=== PATIENT | female | born 1950 | race African-American/Black ===

== ENCOUNTER 2017-05-06 19:13 | Inpatient (IN) | payer OTHER ==
--- NOTE | ~2017-05-06 | EKG ---
PATIENT: FRANK RITCHIE UNIT #: [id number] Ventricular Rate: 82 BPM Atrial Rate: 82 BPM P-R Interval: 124 ms QRS Duration: 108 ms Q-T Interval: 380 ms QTC Calculation(Bezet): 443 ms P Anatone: 65 degrees Calculated R Anatone: -39 degrees Calculated T Anatone: 66 degrees Diagnosis Line: Normal sinus rhythm Diagnosis Line: Left axis deviation Diagnosis Line: Low voltage QRS Diagnosis Line: Right bundle branch block Diagnosis Line: Cannot rule out Inferior infarct , age Diagnosis Line: undetermined Diagnosis Line: Abnormal ECG Diagnosis Line: No previous ECGs available Diagnosis Line: Confirmed by SAEED COBB MD ([id number]) on Diagnosis Line: 05/07/2017 8:22:58 AM INTERPRETING MD: REZA ARELLANO
--- NOTE | ~2017-05-06 | CR63 ---
[facility] A Service of [facility] & [facility] RADIOLOGY TEXT RESULTS PATIENT: FRANK RITCHIE LOCATION: CEDOF : 48 UNIT #: [id number] AGE: [address]: Boni Tidwell MD SEX: F ORDER DR: [id number] [facility] [address] [facility] [place], [place] [address] [id number] I MR#: [id number] #: [id number] NAME: FRANK RITCHIE : 1950 SEX: F STUDY DATE/TIME: 05/07/2017 8:44 UNIT: CEDOF ROOM: 39219 STUDY DESCRIPTION: CR Chest 2 View Attending Physician: Boni Tidwell M.D. Ordering Physician: Lou Pope M.D. Primary Care Physician: Primary Care Physician No MEDICAL IMAGING REPORT This report is preliminary unless electronic signature is present EXAM Chest, 05/07/2017 HISTORY 66-year-old woman followup from 05/06/2017 chest. Patient short of air with generalized weakness. Symptoms stated 1 day only. Possible interstitial infiltrate on comparison exam. COMPARISON Portable chest, 05/06/2017 FINDINGS Two-view chest today demonstrates cardiac enlargement with vascular congestion and interstitial prominence. Probable bilateral pleural effusions. There is now a large hiatal hernia present that was not apparent on the comparison study. IMPRESSION Findings most consistent with congestive heart failure. Large hiatal hernia now present, not apparent on the comparison study. Correlate clinically. Dictated by... Amador Willingham M.D. THIS IS AN ELECTRONICALLY VERIFIED REPORT Amador Willingham M.D. at 05/07/2017 1:56 PM JJ/lucy TD: 05/07/2017 13:37 JOB #: [id number] MEDICAL IMAGING REPORT [facility] A Service of [facility] & [facility] RADIOLOGY TEXT RESULTS PATIENT: FRANK RITCHIE LOCATION: CEDOF : 48 UNIT #: [id number] AGE: [address]: Boni Tidwell MD SEX: F ORDER DR: Page 1 of 1 COPY
--- NOTE | ~2017-05-06 | DS ---
Unit #: [id number] #: [id number] Patient: FRANK RITCHIE [id number] [facility]. [place], [place] [address] [id number] I MR#: [id number] NAME: FRANK RITCHIE ROOM: 307 Age: 66 Sex: F Admission Date: 05/06/2017 : 1950 Discharge Date: 05/08/2017 Attending Physician: Boni Tidwell M.D. Primary Care Physician: No Primary Care Physician DISCHARGE SUMMARY DISCHARGE DIAGNOSES 1. Syncope. 2. Acute kidney injury, prerenal. 3. Pulmonary hypertension. 4. Mixed B12 and iron deficiency anemia. 5. Seizure disorder. 6. Hypovolemic hypotension. HISTORY OF PRESENT ILLNESS/HOSPITAL COURSE The patient is a 66-year-old female brought to [facility] after she was noted to pass out at home. She was with family, outside and celebrating on the 06 of May when she was noted to pass out. The patient does have a seizure disorder and did not have any of her typical seizure-like activity. She did, however, have some loss of urine continence. The patient was noted to have awakened after a very short time and then completely alert after the event, which again, is very different from her normal seizure activity. The patient was noted to have systolic blood pressure in the 70s and 80s but rebounded to normal with a 2-liter bolus. In addition, she was noted to have a creatinine of 1.5. The patient was admitted to a telemetry floor and has had no events on the monitor. She had a two-D echo, which was essentially normal. She did have some elevated right ventricular systolic pressure at 39 mmHg. At this time the patient's creatinine is half of what it was at admission, down to 0.8 from 1.5. The patient has had no further episodes of syncope and feels well. She was briefly on antibiotics for a possible pneumonia given the chest x-ray that was read as "airspace disease of the left base." The patient's procalcitonin levels are negative, making bacterial pneumonia unlikely. Regarding her pulmonary hypertension, I have discussed with the patient the need to see her primary care provider, whose name she cannot recall, and the possible need to pursue an outpatient sleep study. Given no further episodes of syncope and resolution of her acute kidney injury, the patient is being discharged home at this time with her syncope felt secondary to volume depletion. DISCHARGE MEDICATIONS 1. Lisinopril/HCTZ 10/12 mg 1 p.o. daily. Unit #: [id number] #: [id number] Patient: FRANK RITCHIE 2. Keppra 500 mg p.o. b.i.d. 3. Lipitor 20 mg p.o. daily. 4. FeroSul 325 mg p.o. daily. 5. Cyanocobalamin 1,000 mcg p.o. daily. FOLLOWUP As mentioned above, the patient should follow up with her primary care provider at her next regularly scheduled appointment. Dictated by... Boni Tidwell M.D. KALLIE/jessica TD: 05/08/2017 12:40 JOB #: [id number] DISCHARGE SUMMARY Page 1 of 1 X Boni Tidwell MD X DISCHARGE SUMMARY
--- NOTE | ~2017-05-06 | HP ---
Unit #: [id number] #: [id number] Patient: FRANK RITCHIE [id number] [place], [place] [address] [id number] I MR#: [id number] NAME: FRANK RITCHIE ROOM: 27898 Age: 66 Sex: F Admission Date: 05/06/2017 : 1950 Attending Physician: Lou Pope M.D. Primary Care Physician: No Primary Care Physician HISTORY AND PHYSICAL CHIEF COMPLAINT Syncope versus seizure, hypotension, and normocytic anemia. HISTORY This pleasant 66-year-old female with hypertension and seizure disorder, is admitted after an episode of loss of consciousness. The patient went to her nieces alliance party, was in the sun for sometime today with little p.o. intake. Did drink some alcohol. She was witnessed to have an episode where she had some shaky movements and loss of consciousness, but denies her typical symptoms of seizures. States that she was not confused afterwards, nor did she bite her tongue, and no headache. She did, however, lose continence of her urine. She was brought to this emergency department tonight with an initial blood pressure of 90/48, blood pressure was as low as systolic of 70s and 80s. She was bolused with 2 L of IV saline with improvement of her blood pressure 107/65. In the course of her workup, a chest x-ray shows a possible left lower lobe infiltrate; however, the patient denies symptoms of pneumonia. Also she is anemic with a hematocrit of 24.6 and normal MCV. Heme negative from below. Denies previous history of anemia, melena or hematochezia. Labs are also notable for an elevated lactic acid and hypokalemia. In addition to the IV fluids, the patient was given oral potassium, Rocephin and Zithromax pending further workup. She denies complaints at present. She does have a history of hypertension, normally takes Zestoretic. PAST MEDICAL HISTORY 1. Hypertension. 2. Seizure disorder. ALLERGIES None. HOME MEDICATIONS Keppra 500 mg b.i.d.; Zestoretic 10/12.5 mg daily; and possibly a third medicine of unknown name. FAMILY HISTORY Negative for heart disease or anemia. SOCIAL HISTORY The patient lives with grandson. She stopped smoking three years ago, drinks alcohol only occasionally. Unit #: [id number] #: [id number] Patient: FRANK RITCHIE REVIEW OF SYSTEMS Notable for syncope versus seizure today, hypertension, seizure. All other systems were reviewed and are otherwise negative. PHYSICAL EXAMINATION GENERAL: Very pleasant, 66-year-old female who currently is in no acute distress. VITAL SIGNS: Temperature 98, pulse 86, respirations 18, blood pressure 90/48, although a systolic blood pressure was as low as 70s to 80s, current blood pressure is 103. O2 saturation 90% on room air. HEENT: Eyes - PERRLA. Extraocular muscles are intact. Pharynx somewhat poor dentition but benign. NECK: Supple without adenopathy or thyromegaly. CHEST: Clear. CARDIAC: Normal S1 and S2 without S3, S4 or murmur. ABDOMEN: Bowel sounds are present. No hepatosplenomegaly, tenderness, or masses. RECTAL: Per the ER physician, heme negative stool. EXTREMITIES: Minimal edema. Pedal pulses are diminished. NEUROLOGIC: Patient is awake, alert, and oriented. Cranial nerves are intact. Equal strength throughout. DIAGNOSTIC STUDIES ADMISSION LABS: Hematocrit is 24.6 with a hemoglobin of 7.7, no previous values for comparison. Normal white count, MCV, and platelet count. Normal differential. Cardiac markers negative. SMA 12 - creatinine is 1.5, potassium 2.9, lactic acid 4.3, alcohol level is less than 5. Urine tox screen is pending as is urinalysis. IMAGING STUDIES: Chest x-ray - prominence of interstitial markings and possible left lower lobe infiltrate. CARDIOLOGY STUDIES: EKG - normal sinus rhythm, rate 82, nonspecific ST wave abnormalities. Right bundle branch block without previous EKG for comparison. ASSESSMENT 1. Seizure versus syncope. 2. Normocytic anemia, patient is heme negative. 3. Rule out left lower lobe infiltrate, but patient denies symptoms of pneumonia. 4. Hypotension with history of hypertension, better after IV fluids. 5. Hypokalemia on Zestoretic. 6. Acute kidney injury. 7. Seizure disorder on Keppra. PLANS 1. Continue IV fluids, anemia workup and recheck CBC after hydration. 2. Replace potassium and check magnesium. 3. Hold Zestoretic and repeat labs in the morning. 4. Antibiotics pending PA and lateral chest x-ray in the morning. 5. Await urine tox screen. 6. Verify home medicines with [facility]. 7. SCDs for DVT prophylaxis. 8. Further workup and consultants depending on above. 9. Echocardiogram and repeat cardiac enzymes. Unit #: [id number] #: [id number] Patient: FARNK RITCHIE Dictated by Lou Pope M.D. AML/ts TD: 05/07/2017 05:43 JOB #: [id number] HISTORY AND PHYSICAL Page 1 of 1 X Lou Pope MD X HISTORY AND PHYSICAL
--- NOTE | ~2017-05-06 | CR72 ---
[facility] A Service of [facility] RADIOLOGY TEXT RESULTS PATIENT: FRANK RITCHIE LOCATION: CEDOF [address]-94 : [birth year] UNIT #: [id number] AGE: [address]: Boni Tidwell MD SEX: F ORDER DR: [id number] [facility] [address] [place], [place] [address] [id number] I MR#: [id number] #: [id number] NAME: FRANK RITCHIE : 1950 SEX: F STUDY DATE/TIME: 05/06/2017 19:51 UNIT: CEDOF ROOM: 14631 STUDY DESCRIPTION: CR Chest Single View Portable Attending Physician: Lou Pope M.D. Ordering Physician: Ranulfo Tovar M.D. Primary Care Physician: Primary Care Physician No MEDICAL IMAGING REPORT This report is preliminary unless electronic signature is present EXAM Chest x-ray single view portable HISTORY Short of air, possible seizure. Shortness of breath and weakness starting today. No injury. Patient does have high blood pressure. COMMENT Single frontal portable view of the chest timed 19:51 on 05/06/2017 is reviewed. No prior. There is mild cardiac silhouette enlargement and there is ectasia of the thoracic aorta wit vascular calcification at the knob. There is probably airspace disease at the left base with some obscuration of the left heart border and left hemidiaphragm. I would recommend correlation with a two-view study for better assessment. There may be a component of mild vascular congestion. The interstitial markings are prominent and this could be duct chronic interstitial lung disease or acute interstitial edema since I do not have any priors. No pleural effusion or pneumothorax is suspected. IMPRESSION 1. Mild cardiac silhouette enlargement. 2. Concern for some airspace disease of the left base. Would recommend correlation with a two-view study at this time. 3. Prominence of interstitial markings could be acute or chronic in the absence prior films. Please correlate for any history of chronic lung disease or concern for acute interstitial edema. 4. There is vascular calcification at the aortic knob with at least some ectasia of the descending thoracic aorta. STS. [facility] A Service of [facility] / [facility] RADIOLOGY TEXT RESULTS PATIENT: FRANK RITCHIE LOCATION: [facility] [address]-15 : [birth year] UNIT #: [id number] AGE: [address]: Boni Tidwell MD SEX: F ORDER DR: Dictated by... Corrina Ramirez M.D. THIS IS AN ELECTRONICALLY VERIFIED REPORT Corrina Ramirez M.D. at 05/07/2017 7:57 AM AGATA/barrett TD: 05/07/2017 05:23 JOB #: [id number] MEDICAL IMAGING REPORT Page 1 of 1 COPY
[2017-05-06 20:04] LABS: BASOPHIL% 0.6 % (0-2.5); EOSINOPHIL# 0.2 X10e3 (0-0.7); EOSINOPHIL% 3.2 % (0.0-7.0); HEMATOCRIT 24.6 % (35.0-45.0); HEMOGLOBIN 7.7 gm/dL (12.0-16.0); LYMPHOCYTE% 19.7 % (17.0-45.0); MEAN CELL VOLUME 83.9 FL (83-96); MEAN CORPUSCULAR HEMOGLOBIN 26.2 PG (28-34); MEAN CORPUSCULAR HGB CONC 31.3 g/dL (30-36); MONOCYTE# 0.5 X10e3 (0-1.0); MONOCYTE% 9.2 % (3.0-12.0); NEUTROPHIL# 3.6 X10e3 (1.5-7.1); NEUTROPHIL% 67.3 % (40-75); PLATELET COUNT 156 X10e3 (140-420); RED BLOOD COUNT 2.94 X10e (3.90-5.30); RED CELL DISTRIBUTION WIDTH 17.8 % (11.0-15.5); WHITE BLOOD COUNT 5.3 X10e3 (4.0-10.5)
[2017-05-06 20:05] LABS: DIFF IND YES
[2017-05-06 20:09] LABS: POC - CKMB <1.0 ng/mL (0.0-7.9); POC - TROPONIN <0.05 ng/mL (<=0.05)
[2017-05-06 20:22] LABS: ALBUMIN SERUM 3.6 g/dL (3.5-5.0); ALKALINE PHOSPHATASE 52 U/L (32-92); ALT (SGPT) 13 U/L (10-40); AST (SGOT) 22 U/L (10-42); BILIRUBIN, DIRECT 0.1 mg/dL (0.0-0.2); BILIRUBIN,INDIRECT 0.5 mg/dL (0.0-0.9); BILIRUBIN,TOTAL 0.6 mg/dL (0.2-2.0); BLOOD UREA NITROGEN 20 mg/dL (9-23); BUN/CREATININE RATIO 13.33; CALCIUM SERUM 8.5 mg/dL (8.4-10.2); CARBON DIOXIDE 23 mmol/L (22-31); CHLORIDE 104 mmol/L (100-111); CREATININE SERUM 1.5 mg/dL (0.6-1.4); GLOM FILT RATE Estimated 41.1 mL/min (>60); GLUCOSE FASTING 89 mg/dL (70-110); PROTEIN TOTAL SERUM 6.7 g/dL (6.0-8.3); SODIUM 137 mmol/L (135-145)
[2017-05-06 20:25] LABS: ALCOHOL BLOOD <5 mg/dL (0); POTASSIUM 2.9 mmol/L (3.5-5.1)
[2017-05-06 20:27] LABS: ANISOCYTOSIS MOD; PLATELET ESTIMATE NORMAL (NORMAL); POIKILOCYTOSIS SL
[2017-05-06] MEDS ORDERED: KEPPRA500 M2 PO (21:40)
[2017-05-06] MEDS ORDERED: ZESTORETIC 10-1 EAC1 PO (21:41)
[2017-05-06 22:16] LABS: URINE SOURCE CLEAN CATCH
[2017-05-06 22:20] LABS: URINE APPEARANCE CLEAR; URINE BILIRUBIN NEG (NEG); URINE BLOOD NEG (NEG); URINE COLOR YELLOW; URINE GLUCOSE NEG (NEG); URINE KETONE NEG (NEG); URINE LEUKOCYTE ESTERASE NEG (NEG); URINE NITRATE NEG (NEG); URINE PROTEIN NEG (NEG); URINE SPECIFIC GRAVITY 1.018 (1.003-1.035); URINE UROBILINOGEN 0.2 MG/DL (NEG)
[2017-05-06 22:25] LABS: CULTURE INDICATED? NO
[2017-05-06 22:29] LABS: AMPHETAMINE NEG (NEG); BARBITURATES NEG (NEG); BENZODIAZEPINES NEG (NEG); COCAINE NEG (NEG); MARIJUANA NEG (NEG); OPIATES NEG (NEG); TRICYCLIC ANTIDEPRESSANTS NEG (NEG); U METHADONE NEG (NEG)
[2017-05-07 00:38] LABS: MAGNESIUM 1.9 mg/dL (1.6-3.0)
[2017-05-07 00:57] LABS: %MB 0.7 % (0.0-4.0); MB 0.6 ng/ml
[2017-05-07 01:23] LABS: HEMATOCRIT 29.7 % (35.0-45.0); MEAN CELL VOLUME 81.2 FL (83-96); MEAN CORPUSCULAR HEMOGLOBIN 26.5 PG (28-34); MEAN CORPUSCULAR HGB CONC 32.7 g/dL (30-36); RED BLOOD COUNT 3.66 X10e (3.90-5.30); RED CELL DISTRIBUTION WIDTH 18.2 % (11.0-15.5); RETICULOCYTE 0.8 % (0.5-2.8)
[2017-05-07 01:26] LABS: HEMOGLOBIN 9.7 gm/dL (12.0-16.0); WHITE BLOOD COUNT 8.6 X10e3 (4.0-10.5)
[2017-05-07 08:32] LABS: HEMATOCRIT 33.1 % (35.0-45.0); HEMOGLOBIN 10.5 gm/dL (12.0-16.0); MEAN CELL VOLUME 83.7 FL (83-96); MEAN CORPUSCULAR HEMOGLOBIN 26.5 PG (28-34); MEAN CORPUSCULAR HGB CONC 31.7 g/dL (30-36); MEAN PLATELET VOLUME 9.4 FL (6.5-11.5); RED BLOOD COUNT 3.96 X10e (3.90-5.30); RED CELL DISTRIBUTION WIDTH 18.2 % (11.0-15.5); WHITE BLOOD COUNT 6.7 X10e3 (4.0-10.5)
[2017-05-07 09:01] LABS: CALCIUM SERUM 8.3 mg/dL (8.4-10.2); GLOM FILT RATE Estimated 67.1 mL/min (>60)
[2017-05-07 09:03] LABS: POTASSIUM 4.4 mmol/L (3.5-5.1)
[2017-05-07 09:22] LABS: %MB 1.2 % (0.0-4.0); MB 1.1 ng/ml
[2017-05-07] MEDS ORDERED: FEROSUL325 MG PO (09:49)
[2017-05-07] MEDS ORDERED: LIPITOR20 MG PO (09:49)
[2017-05-08 05:59] LABS: HEMATOCRIT 28.6 % (35.0-45.0); HEMOGLOBIN 9.2 gm/dL (12.0-16.0); MEAN CELL VOLUME 81.9 FL (83-96); MEAN CORPUSCULAR HEMOGLOBIN 26.4 PG (28-34); MEAN CORPUSCULAR HGB CONC 32.2 g/dL (30-36); MEAN PLATELET VOLUME 9.3 FL (6.5-11.5); RED BLOOD COUNT 3.49 X10e (3.90-5.30); RED CELL DISTRIBUTION WIDTH 18.7 % (11.0-15.5)
[2017-05-08 07:02] LABS: BUN/CREATININE RATIO 13.75; CALCIUM SERUM 8.3 mg/dL (8.4-10.2); CREATININE SERUM 0.8 mg/dL (0.6-1.4); GLOM FILT RATE Estimated 87.9 mL/min (>60); POTASSIUM 3.8 mmol/L (3.5-5.1)
[2017-05-08 07:13] LABS: PROCALCITONIN 0.05 NG/ML
[2017-05-08] MEDS ORDERED: VITAMIN B-121000 MC1 SL (13:13)
== END 2017-05-08 17:43 | disposition home or self-care (01) | DRG 684 ==
LOC: CED 19:13 → CEDOF 21:57 → CED 21:57 → CEDOF 22:40 → C3A PCU 05-07 18:34
PROVIDERS: Emergency Medicine; Internal Medicine
PROC: B246YZZ Ultrasonography of Right and Left Heart using Other Contrast (ICD-10-PCS; principal; 2017-05-07)
DX: N17.9 Acute kidney failure, unspecified (principal); I27.2 Other secondary pulmonary hypertension; E86.9 Volume depletion, unspecified; G40.909 Epilepsy, unspecified, not intractable, without status epilepticus; E87.6 Hypokalemia; I10 Essential (primary) hypertension; Z87.891 Personal history of nicotine dependence; D50.9 Iron deficiency anemia, unspecified; D51.9 Vitamin B12 deficiency anemia, unspecified
CPT/HCPCS: 36415; 71010; 71020; 80048; 80076; 80307; 81003; 82308; 82550; 82553; 82607; 82728; 82746; 83540; 83550; 83605; 83735; 84484; 85025; 85027; 85044; 86850; 86900; 86901; 87040; 93005; 93306; 96361; 96365; 99285; G0480; J0456; J0696; J3420